=== PATIENT | male | born 1985 | race Hispanic/Latino ===

== ENCOUNTER → 2017-11-10 | Day surgery (SDC) | payer BC ==
[~2017-11-10] MED LIST: BUPIVACAINE 0.25% 30ML SDV INJ ONE; BUPIVACAINE HCL 0.5% 10ML MPF VIAL INJ ONE; CEFAZOLIN SOD 1 GM VIAL ONE; DEXAMETHASONE SOD PHOS INJ 4 MG/ML VIAL ONE; FENTANYL CITRATE/PF 100MCG/2 ML INJ ONE; KETOROLAC TROMETHAMINE 30 MG/ML VIAL ONE; LIDOCAINE HCL 2% LOCAL INJ 5 ML SDV VIAL INJ ONE; MIDAZOLAM HCL 2 MG/2 ML VIAL ONE; ONDANSETRON HCL INJ 2 MG/ML VIAL ONE; PROPOFOL IV EMULSION 10 MG/ML 20 ML VIAL ONE; SEVOFLURANE INHAL SOLN 250 ML PEN BTL ONE
--- NOTE | 2017-11-10 09:38 | Operative Report ---
DATE OF PROCEDURE: November 10, 2017 PREOPERATIVE DIAGNOSIS: Left wrist volar ganglion. POSTOPERATIVE DIAGNOSIS: Left wrist volar ganglion. PROCEDURE: Excision of left wrist volar ganglion. STORE COORDINATOR: Niall Richards PA-C The patient was brought to the operating room for induction of anesthesia. Throughout this case, my PA's assistance was necessary for retraction of soft tissue and positioning of the extremity. This allows for efficient and technically successful execution of the operation and is considered medically necessary. INDICATIONS: The patient is a 31-year-old gentleman who has clinic signs and symptoms consistent with a left wrist volar ganglion. We have discussed the findings and he would like this definitively excised. The risks and benefits have been explained. He states he understands and wishes to proceed. DESCRIPTION OF PROCEDURE: The patient was brought to the operating room and placed under general anesthetic. His left upper extremity was prepped and draped in a sterile manner. A preoperative time out was performed. A proximal tourniquet was inflated to 250 mmHg. A transverse incision was made directly over the volar radial aspect of the wrist. Blunt dissection was carried down to expose the cystic mass. Care was taken to avoid injury to the neurovascular structures. This was carefully dissected out to reveal a stalk that went down to the flexor carpi radialis tendon sheath. The cystic mass was excised en bloc. The wound was irrigated. The tendon sheath was released. The wound was then closed with subcuticular Vicryl and interrupted nylon stitches. A sterile bandage and a volar splint were applied. The patient was extubated and transported to the recovery room in stable condition. There was no blood loss. All needle and sponge counts were correct. The specimen was sent to pathology. Job#: [id number]
== END | disposition home or self-care (01) ==
LOC: OR 07:05
PROVIDERS: ATTEND Specialist
DX: M67.432 Ganglion, left wrist (principal)
CPT/HCPCS: 25111; 88304; J0690; J1100; J1885; J2001; J2250; J2405